=== PATIENT | male | born 1975 | race African-American/Black ===

== ENCOUNTER 2020-03-18 05:13 | Emergency (ER) | payer MEDICAID ==
[~2020-03-18] VITALS: Ht 188 cm; Wt 82.0 kg
[2020-03-18] MEDS ORDERED: IBUPROFEN 600MG TABLET PO STA (06:18)
[2020-03-18 06:44] VITALS: BP 146/94
== END 2020-03-18 06:46 | disposition home or self-care (01) ==
LOC: ER 05:13
DX: S20.20XA Contusion of thorax, unspecified, initial encounter (principal); Z98.890 Other specified postprocedural states; W03.XXXA Other fall on same level due to collision with another person, initial encounter; Y93.89 Activity, other specified; Y92.013 Bedroom of single-family (private) house as the place of occurrence of the external cause
CPT/HCPCS: 71045; 99283